=== PATIENT | female | born 1970 | race Caucasian/White ===

== ENCOUNTER 2017-10-10 14:18 | Emergency (ER) | payer OTHER, SELFPAY ==
[2017-10-10] VITALS (8 sets, daily range): BP systolic 134–164; BP diastolic 71–91; PULSE 89–107; RESP 15–18; TEMP 36.9; O2SAT 95–98; BMI 41.2
--- NOTE | 2017-10-10 15:13 | EKG12_ITS ---
Test Reason : REPEAT Blood Pressure : / mmHG Vent. Rate : 081 BPM Atrial Rate : 081 BPM P-R Int : 142 ms QRS Dur : 082 ms QT Int : 366 ms P-R-T Axes : 026 022 021 degrees QTc Int : 425 ms Normal sinus rhythm Normal ECG Confirmed by KARIN SANDRA, SYLWIA ([id number]), manuscript editor DIMA TRIMBLE ([id number]) on 10/13/2017 1:47:08 PM Referred By: RAFAEL Confirmed By:SYLWIA FRAZIER MD
--- NOTE | 2017-10-10 15:14 | CT_ITS ---
STUDY: CTA CHEST REASON FOR EXAM: Female, 47 years old. Shortness of breath chest pain RADIATION DOSAGE (If Supplied By Facility): CTDIvol = ( 14.21 ) mGy, DLP = ( 606.94 ) mGycm TECHNIQUE: The examination was performed with the intravenous administration of 100 ml of Isovue 370 contrast material. Post-processing of the angiographic images was performed, with multiplanar reformation and 3D reconstruction. Individualized dose optimization techniques were used for this CT. COMPARISON: Renee 2017 chest x-ray, CT angiogram chest March 13, 2017 FINDINGS: Normal enhancement of the main pulmonary artery and right and left pulmonary arteries. Normal enhancement of the bilateral peripheral pulmonary arteries. There is no demonstrated pulmonary embolism. Normal thoracic aorta and visualized great vessels. There is no demonstrated aortic dissection. Normal heart and pericardium. Normal mediastinum. Normal hilar regions. Normal visualized trachea and bronchi. The lungs are well expanded. Normal pulmonary parenchyma. Normal pleura. Normal chest wall structures. There are degenerative changes of thoracic spine. The liver is enlarged and fatty infiltrated. There is borderline splenomegaly. CT/CTA Chest W/WO Contrast IMPRESSION: Normal CTA chest examination, without a demonstrated pulmonary embolism or arterial dissection. Enlarged fatty infiltrated liver. Electronically Signed: Nanci Monroy MD at 17:28 EST Tel , Service support ,
--- NOTE | 2017-10-10 15:14 | RAD_ITS ---
STUDY: X-RAY CHEST REASON FOR EXAM: Female, 47 years old. Chest pain TECHNIQUE: Single AP portable view of the chest. COMPARISON: March 13, 2017 CT chest FINDINGS: The lungs are clear and expanded. There is no demonstrated pleural abnormality. Normal size heart. Normal mediastinum and marcelo. Normal visualized pulmonary arteries. Normal visualized aortic arch and descending thoracic aorta. There are diffuse degenerative changes of the visualized thoracic spine. Normal visualized ribs, clavicles, and shoulders. There is no demonstrated abnormality of the visualized soft tissue structures of the upper abdomen. RAD/Chest PA and Lateral IMPRESSION: Degenerative changes, as described above. No demonstrated acute cardiopulmonary process. Electronically Signed: Nanci Monroy MD at 16:52 EST Tel , Service support ,
[2017-10-10] MEDS: 0.9% Normal Saline 1,000 ML 1000 ML IV (15:23)
[2017-10-10] MEDS: Aspirin 81 MG TAB.CHEW 324 MG PO (15:24)
--- NOTE | 2017-10-10 15:25 | ED.DCSUM_ITS ---
- ER Visit Summary Date of Service: 10/10/17 Chief Complaint: chest pain History of Present Illness: The patient is a 47 F history of pulmonary embolism who presents for chest pain onset yesterday. Patient states yesterday she had an episode of chest heaviness with discomfort in her back as well as radiation to the left jaw, which she thought was due to a recent tooth extraction. It took her breath away. It lasted approximately 1 hour. Today she began having symptoms again and they have lasted approximately 4 hours. 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 She was then switched to Eliquis but did not realize it was a twice daily medication. She has only been taking it twice daily for 2 weeks. She has a family history of unprovoked blood clots. she states she has had fevers and hot flashes for approximately 2 weeks that have been intermittent as well as nausea. No congestion or cold- like symptoms. History of hypothyroidism status post thyroidectomy. Physical Examination: Vital signs: afebrile, hemodynamically stable, no hypoxia on room air General: well nourished, well developed, in no distress Skin: warm, dry, no rash, no pallor HEENT: normocephalic and atraumatic; PERRL, EOMI, moist mucous membranes Cardiovascular: regular rate and rhythm without murmurs, no peripheral edema, 2 + pulses all distal extremities Respiratory: No increased work of breathing, lungs are clear to auscultation bilaterally, no rales, rhonchi or wheezing Abdominal: Abdomen is soft, nontender with normoactive bowel sounds, no guarding or rebound, no masses MSK: Moves all extremities, no deformities, normal strength, no calf tenderness or swelling Neuro: Awake and alert, oriented ?4. No facial droop, sensation and motor function intact and symmetric Test Results: Abnormal Lab Results 10/10/17 10/10/17 10/10/17 14:37 14:37 15:33 PT 14.0 INR 1.1 APTT 27.1 10/10/17 10/10/17 10/10/17 15:33 15:33 18:30 WBC 13.4 H Corrected WBC RBC 5.25 Hgb 14.3 Hct 44.0 MCV 83.8 MCH 27.2 MCHC 32.5 RDW 14.4 RDW Differential 43.7 Plt Count 424 MPV 9.7 Immature Gran % (Auto) 0.600 Neut % (Auto) 51.8 Lymph % (Auto) 37.8 Marion % (Auto) 5.1 Eos % (Auto) 4.5 Baso % (Auto) 0.2 Immature Gran # (Auto) Absolute Neuts (auto) 7.0 Absolute Lymphs (auto) 5.08 H Absolute Monos (auto) Total Counted Not Reportable Neutrophils % (Manual) Band Neutrophils % Lymphocytes % (Manual) Monocytes % (Manual) Eosinophils % (Manual) Basophils % (Manual) Metamyelocytes % Myelocytes % Promyelocytes % Blast Cells % Plasma Cell % (Manual) Other Cells % Lymphocytes # Nucleated RBCs/100 WBC Differential Comment SCANNED Diff Path Review Hypersegmented Neuts Atypical Lymphocytes Reactive Lymphocytes Smudge Cells Eosinophilia # Basophilia # Toxic Granulation Dohle Bodies Jose Armando Rods Platelet Estimate Plt Morphology Comment RBC Morphology Polychromasia Hypochromasia Poikilocytosis Basophilic Stippling Anisocytosis Microcytosis Macrocytosis Spherocytes Sickle Cells Target Cells Tear Drop Cells Ovalocytes Stomatocytes [place] Bodies Viky Cells Bite Cells Acanthocytes (Spur) Rouleaux Schistocytes PT INR APTT Sodium 137 Potassium 4.1 Chloride 107 Carbon Dioxide 21.0 Anion Gap 9 BUN 19 H Creatinine 0.68 Estim Creat Clear Calc 102.06 Est GFR (MDRD) Af Amer 119 Est GFR (MDRD) Non-Af 98 BUN/Creatinine Ratio 28.1 H Glucose 105 Calcium 9.9 Troponin I < 0.02 < 0.02 TSH 0.03 L Emergency Department Course and Treatment: Chest pain workup was performed. Given patient's history of unprovoked blood clots in her improper dosing of her Eliquis, PE workup was included. EKG showed sinus rhythm without ischemia or ectopy. Mild leukocytosis of 13.4. No electrolyte derangements. Troponin negative. Patient did have labs consistent with dehydration. CT angiograph of the chest was performed and showed no evidence of pulmonary emboli and no other pathology. Chest x-ray had showed no infiltrates or effusions. Patient was given IV hydration. She was given aspirin. Because of her several hours of symptoms and her HEART score putting her at low risk for 30-day MACE, a delta EKG and troponin were performed. The repeat EKG at 3 hours was unchanged and the troponin remained negative. Patient's TSH was checked given her history of hypothyroidism after her thyroidectomy. Her TSH was very low and we discussed that she should follow-up with her doctor for medication adjustment of her levothyroxine. Patient was pain-free during her visit in the emergency department. She was given return precautions. She was discharged home and is instructed to follow-up with her primary care doctor as soon as possible for further evaluation and possible outpatient stress test. Treatment Plan: [] Disposition: discharge home Impression: chest pain, low TSH, hyperthyroidism This note was generated with [employer] dictation software. It may contain incorrect words, spelling, and punctuation that were not noted in review of the chart prior to signing ED Disposition - Plan for ED Patient: Disposition: Home or Assisted Living Chief Complaint: Chest Pain Instructions: ED Chest Pain Atypical Unkn Cause, ED Hyperthyroidism Referrals: Ayanna Wright DO [Primary Care Provider] - As soon as possible Additional Instructions: You had a workup for your chest pain today. you had 2 EKGs and blood work performed twice that showed no concerning findings for this being a heart attack. Please see your doctor as soon as possible for another evaluation and to discuss whether you need an outpatient stress test to further work up your chest pain. Your scan of your chest showed no evidence of a blood clot. Your workup does show that her thyroid function is high. You may need your medication dose reduced. Please see your doctor as soon as possible to discuss this. If you are taking too much thyroid medication, this may make you have symptoms like you presented with today. If you have any worsening of your condition or any further concerns, please come back immediately for another evaluation to the emergency department.
[2017-10-10 15:48] LABS: International Normalized Ratio 1.1
[2017-10-10 15:49] LABS: Partial Thromboplast Time 27.1 Seconds (24.1-36.2)
[2017-10-10 15:52] LABS: Absolute Lymphocyte Count 5.08 X10^3/ul (0.83-4.51); Basophil# 0.03 X10^3/uL; Basophil% 0.2 % (0-1); Eosinophils% 4.5 % (0-5); Hemoglobin 14.3 g/dl (12.0-15.0); Lymphocyte # 5.08 X10^3/ul (4.0); Lymphocyte % 37.8 % (19-41); Mean Corp Hgb Conc 32.5 g/gl (32-36); Mean Corpuscular Hgb 27.2 pg (27.0-32.0); Mean Corpuscular Volume 83.8 fL (81-99); Mean Platelet Vol. 9.7 fl (6.2-12.0); Monocyte# 0.68 X10^3/uL; Monocyte% 5.1 % (0-10); Neutrophil # 6.97 X10^3/uL (2.7-7.7); Neutrophil % 51.8 % (47-70); Platelet Count 424 K/mm3 (150-450); RBC Distribution Width CV 14.4 % (11.6-14.6); RBC Distribution Width SD 43.7 fl (35.1-43.9); Red Blood Count 5.25 M/mm3 (4.2-5.4); White Blood Count 13.4 K/mm3 (4.4-11.0)
[2017-10-10 16:07] LABS: Differential Indicated SCAN CRITERIA MET; POSITIVE COUNT NO; POSITIVE DIFFERENTIAL YES; POSITIVE MORPHOLOGY NO
[2017-10-10 16:12] LABS: Anion Gap 9 (5-15); BUN 19 mg/dL (7-18); BUN/Creat Ratio 28.1 RATIO (10-20); Calcium,Total 9.9 mg/dL (8.5-10.1); Chloride 107 mmol/L (98-107); Creatinine, Serum 0.68 mg/dL (0.55-1.02); EST Glomerular Filtration Rate 98 mL/min (>60); Est Glom Filt Rate - Afr Amer 119 mL/min (>60); Estimated Creatinine Clearance 102.06 ml/min; Glucose 105 mg/dL (74-106); Potassium 4.1 mmol/L (3.5-5.1); Sodium Level 137 mmol/L (136-145); Thyroid Stim Hormone (TSH) 0.03 uIU/mL (0.358-3.74)
[2017-10-10 16:33] LABS: Differential Comment SCANNED
--- NOTE | 2017-10-10 17:48 | EKG12_ITS ---
Test Reason : CP Blood Pressure : / mmHG Vent. Rate : 096 BPM Atrial Rate : 096 BPM P-R Int : 140 ms QRS Dur : 082 ms QT Int : 344 ms P-R-T Axes : 013 012 008 degrees QTc Int : 434 ms Normal sinus rhythm Normal ECG Confirmed by KARIN SANDRA, SYLWIA ([id number]), desk editor DIMA TRIMBLE ([id number]) on 10/13/2017 1:47:22 PM Referred By: DENNYS Confirmed By:SYLWIA FRAZIER MD
--- NOTE | 2017-10-10 19:17 | ED.DEP ---
ED Disposition - Plan for ED Patient: Disposition: Home or Assisted Living Chief Complaint: Chest Pain Instructions: ED Hyperthyroidism, ED Chest Pain Atypical Unkn Cause Referrals: Ayanna Wright, [Primary Care Provider] - As soon as possible Additional Instructions: You had a workup for your chest pain today. you had 2 EKGs and blood work performed twice that showed no concerning findings for this being a heart attack. Please see your doctor as soon as possible for another evaluation and to discuss whether you need an outpatient stress test to further work up your chest pain. Your scan of your chest showed no evidence of a blood clot. Your workup does show that her thyroid function is high. You may need your medication dose reduced. Please see your doctor as soon as possible to discuss this. If you are taking too much thyroid medication, this may make you have symptoms like you presented with today. If you have any worsening of your condition or any further concerns, please come back immediately for another evaluation to the emergency department.
== END 2017-10-10 19:40 | disposition home or self-care (01) ==
PROVIDERS: Emergency Provider Emergency Medicine; Family Provider Internal Medicine; PCP Internal Medicine
DX: R07.9 Chest pain, unspecified (principal); E89.0 Postprocedural hypothyroidism; R94.6 Abnormal results of thyroid function studies; Z86.711 Personal history of pulmonary embolism; Z79.01 Long term (current) use of anticoagulants; Z83.2 Family history of diseases of the blood and blood-forming organs and certain disorders involving the immune mechanism; Z87.891 Personal history of nicotine dependence; Z79.899 Other long term (current) drug therapy
CPT/HCPCS: 71046; 71275; 80048; 84443; 84484; 85025; 85610; 85730; 93005; 96360; 96361; 99285; J7030; Q9967; A4216

== ENCOUNTER 2017-10-11 16:43 | Outpatient (RCR) | payer OTHER, SELFPAY ==
[2017-10-10 14:20] VITALS: BMI 41.2
[2017-10-10 19:36] VITALS: BP 140/71
== END 2017-11-01 23:59 ==
LOC: DC 16:43
PROVIDERS: Family Provider Internal Medicine; PCP Internal Medicine; Visit Provider Internal Medicine
DX: E11.9 Type 2 diabetes mellitus without complications (principal); E66.9 Obesity, unspecified; I10 Essential (primary) hypertension; K76.0 Fatty (change of) liver, not elsewhere classified; Z68.41 Body mass index [BMI] 40.0-44.9, adult; Z71.3 Dietary counseling and surveillance
CPT/HCPCS: G0109

== ENCOUNTER → 2017-10-25 07:09 | Outpatient (CLI) | payer OTHER, SELFPAY ==
[2017-10-10 14:20] VITALS: BMI 41.2
[2017-10-10 19:36] VITALS: BP 140/71
--- NOTE | 2017-10-25 11:14 | STRESSREP_ITS ---
Stress Test Report Date: 10/25/2017 Procedure: Exercise tolerance test/imaging study Indications: Chest pain Consent: Per the patient Procedure: The patient exercised on a Cedric protocol for 6 minutes completing stage II achieving a peak heart rate of 162 bpm (94% predicted maximal heart rate) with a peak blood pressure 180/90 mmHg and a peak MET capacity of 7 METs. The baseline ECG demonstrated normal sinus rhythm. The peak exercise ECG demonstrated approximately 0.5-1.[address] segment depression in leads II, III, aVF, and V3 through V6 with resolution towards baseline beginning by 1 minute in recovery. There were no cardiac dysrhythmias pretest, during exercise, or recovery. The functional capacity was considered average. The patient noted arm discomfort from holding. The examination was discontinued secondary to dyspnea. Impression: 1. Technically adequate (percent predicted maximal heart rate greater than 85% ) exercise tolerance test 2. Peak exercise ECG with approximately 0.5-1.[address] segment depression in leads II, III, aVF, and V3 through V6 with resolution towards baseline beginning by 1 minute in recovery. 3. Nuclear images pending Myocardial perfusion imaging study: Technique: The patient was injected with 14.6 mCi of technetium 99m Cardiolite and subsequently rest SPECT Cardiolite nuclear imaging was obtained in the horizontal long, vertical long, and short axis views. The patient exercised on a Cedric protocol for 6 minutes completing stage II achieving a peak heart rate of 162 bpm (94% predicted maximal heart rate) with a peak blood pressure 180/90 mmHg and a peak MET capacity of 7 METs the patient was injected with 44.7 mCi of technetium 99m Cardiolite and subsequently stress SPECT Cardiolite nuclear imaging was obtained in the horizontal long, vertical long, and short axis views. A gated Cardiolite study at peak stress was obtained. Interpretation: Rest and stress SPECT Cardiolite nuclear imaging status post realignment, normalization, and attenuation correction, demonstrates the appearance of relative uniform tracer uptake and myocardial perfusion appearing within normal limits. There is end systolic thickening and brightening. The gated Cardiolite study demonstrates myocardial thickening and inward wall motion. The reported LVEF is 69%. Impression: 1. Rest and stress SPECT Cardiolite nuclear imaging demonstrate relative uniform tracer uptake and myocardial perfusion appearing within normal limits. 2. The gated Cardiolite study reports an LVEF of 69%. This note was generated with Dragon dictation software. It may contain incorrect words, spelling, and punctuation that were not noted in checking the note before signing.
== END ==
PROVIDERS: Family Provider Internal Medicine; PCP Internal Medicine; Visit Provider Internal Medicine
DX: R07.9 Chest pain, unspecified (principal)
CPT/HCPCS: 78452; 93017; A9500; A4216

== ENCOUNTER 2018-01-11 18:30 | Outpatient (RCR) | payer OTHER, SELFPAY ==
[2017-11-02 00:08] VITALS: BP 140/71; BMI 41.2
== END 2018-02-01 23:59 ==
LOC: DC 18:30
PROVIDERS: Family Provider Internal Medicine; PCP Internal Medicine; Visit Provider Internal Medicine
DX: E11.9 Type 2 diabetes mellitus without complications (principal); E66.9 Obesity, unspecified; I10 Essential (primary) hypertension; K76.0 Fatty (change of) liver, not elsewhere classified; Z68.41 Body mass index [BMI] 40.0-44.9, adult; Z71.3 Dietary counseling and surveillance
CPT/HCPCS: 97803; G0109

== ENCOUNTER → 2018-01-19 08:53 | Outpatient (CLI) | payer OTHER, SELFPAY ==
--- NOTE | 2018-01-19 08:56 | RAD_ITS ---
STUDY: X-RAY - RIGHT SHOULDER REASON FOR EXAM: Female, 47 years old. Pain following injury. TECHNIQUE: 4 view(s) of the shoulder. COMPARISON: None. FINDINGS: Normal glenohumeral articulation. There is degenerative arthrosis of the acromioclavicular joint without inferior osseous spur formation. Normal acromion. Normal humeral head and visualized proximal humerus. There is periarticular soft tissue calcification consistent with a calcific tendinitis. Normal visualized pulmonary apex. RAD/Shoulder min 2 Views IMPRESSION: Calcific tendinitis. Degenerative changes of the acromioclavicular joint. Electronically Signed: Carlos Tafoya MD at 13:50 EDT Tel [phone], Service support ,
== END ==
PROVIDERS: Family Provider Internal Medicine; PCP Internal Medicine; Visit Provider Internal Medicine
DX: M19.011 Primary osteoarthritis, right shoulder (principal)
CPT/HCPCS: 73030

== ENCOUNTER → 2018-03-15 12:52 | Outpatient (CLI) | payer OTHER, SELFPAY ==
--- NOTE | 2018-03-15 12:55 | CT_ITS ---
STUDY: CT RIGHT SHOULDER REASON FOR EXAM: Right shoulder injury, loss of range of motion. TECHNIQUE: The patient was scanned in a multi detector CT scanner. High resolution transaxial imaging was performed without the administration of intravenous contrast material. Sagittal and coronal images were reconstructed. Individualized dose optimization techniques were used for this CT. COMPARISON: Radiographs 01/19/2018. FINDINGS: Normal glenohumeral articulation. Normal glenoid rim, neck and visualized scapula. Normal humeral head, neck and tuberosities. Normal coracoid process. Normal visualized lateral clavicle. There is acromioclavicular arthrosis with vacuum phenomenon (coronal reconstructions 53, 54) and no substantial undersurface osteophytes. There is a Type II morphology (curved), with a neutral orientation. There is mild supraspinatus calcific tendinitis (sagittal reconstruction 32). CT/Extremity Upper without Contra IMPRESSION: Mild supraspinatus calcific tendinitis. Acromioclavicular arthrosis. No demonstrated fracture. Electronically Signed: Kalin Rizo MD at 16:01 EDT Tel , Service support ,
== END ==
PROVIDERS: Family Provider Internal Medicine; PCP Internal Medicine; Visit Provider Orthopaedic Surgery
DX: S46.911A Strain of unspecified muscle, fascia and tendon at shoulder and upper arm level, right arm, initial encounter (principal); X58.XXXA Exposure to other specified factors, initial encounter; M75.31 Calcific tendinitis of right shoulder; M19.011 Primary osteoarthritis, right shoulder
CPT/HCPCS: 73200

== ENCOUNTER 2018-03-28 20:55 | Emergency (ER) | payer OTHER, SELFPAY ==
[2018-03-28 20:57] VITALS: BP 144/79; PULSE 95; RESP 18; TEMP 36.6; O2SAT 98; BMI 36.1
--- NOTE | 2018-03-28 21:42 | ED.DCSUM_ITS ---
- ER Visit Summary Date of Service: 03/28/18 Chief Complaint: Back pain History of Present Illness: The patient is a 48 F presents with chief complaint of back pain. Patient has a history of chronic back pain and was recently diagnosed with possible rotator cuff injury to her right shoulder. Patient states that she is currently moving and has been lifting and twisting a lot. She has been trying to use her left arm more to compensate for her right shoulder injury. She states her back has been tight for the past couple of weeks, but has become much more significant over the past 3 or 4 days. Patient denies pain radiating into her legs or arms. She was not able to sleep last night secondary to pain. Physical Examination: Vital signs unremarkable. Patient sitting on the side of the bed. She appears uncomfortable but no acute distress. Heart is regular rate and rhythm. Lung sounds are clear. Back examination was reproducible tenderness in the thoracic and lumbar paraspinals. There is no significant midline tenderness. Neuro exam is unremarkable with good strength and sensation the lower extremities. Test Results: [] Emergency Department Course and Treatment: Patient be given a home pack of oxycodone and Valium as she did drive herself here. She will be given prescriptions for Percocet and Valium as well. Because of her history of diabetes and on blood thinner, I will avoid anti-inflammatories. Treatment Plan: [] Disposition: Discharge Impression: Thoracic and lumbar paraspinal strain with spasm This note was generated with [employer] dictation software. It may contain incorrect words, spelling, and punctuation that were not noted in review of the chart prior to signing ED Disposition - Plan for ED Patient: Disposition: Home or Assisted Living Chief Complaint: Back Instructions: ED Sprain Strain Lumbar Prescriptions: Oxycodone HCl/Acetaminophen [Percocet 5/325] 1 tablet PO Q6H PRN PRN 3 Days #12 tablet PRN Reason: Pain Diazepam [Valium] 5 mg PO Q8 PRN #10 tablet PRN Reason: Muscle Spasm Referrals: Ayanna Wright DO [Primary Care Provider] - 1 Week if not improving
--- NOTE | 2018-03-28 21:45 | DCINST.ED_ITS ---
ED Disposition - Plan for ED Patient: Disposition: Home or Assisted Living Chief Complaint: Back Instructions: ED Sprain Strain Lumbar Prescriptions: Oxycodone HCl/Acetaminophen [Percocet 5/325] 1 tablet PO Q6H PRN PRN 3 Days #12 tablet PRN Reason: Pain Diazepam [Valium] 5 mg PO Q8 PRN #10 tablet PRN Reason: Muscle Spasm Referrals: Ayanna Wright DO [Primary Care Provider] - 1 Week if not improving
[2018-03-28] MEDS: oxyCODONE 5 MG Tablet PO (22:01)
[2018-03-28] MEDS: diazePAM 2 MG Tablet PO (22:02)
[2018-03-28 22:11] VITALS: RESP 17
== END 2018-03-28 22:11 | disposition home or self-care (01) ==
PROVIDERS: Emergency Provider Emergency Medicine; Family Provider Internal Medicine; PCP Internal Medicine
DX: S29.012A Strain of muscle and tendon of back wall of thorax, initial encounter (principal); S39.012A Strain of muscle, fascia and tendon of lower back, initial encounter; M62.830 Muscle spasm of back; X50.9XXA Other and unspecified overexertion or strenuous movements or postures, initial encounter; X50.1XXA Overexertion from prolonged static or awkward postures, initial encounter; Y93.9 Activity, unspecified; Y92.9 Unspecified place or not applicable; J45.909 Unspecified asthma, uncomplicated; K21.9 Gastro-esophageal reflux disease without esophagitis; E11.9 Type 2 diabetes mellitus without complications; Z90.49 Acquired absence of other specified parts of digestive tract; Z90.710 Acquired absence of both cervix and uterus; Z79.84 Long term (current) use of oral hypoglycemic drugs; Z79.01 Long term (current) use of anticoagulants; Z79.899 Other long term (current) drug therapy; Z87.891 Personal history of nicotine dependence
CPT/HCPCS: 99282

== ENCOUNTER 2018-04-03 01:09 | Emergency (ER) | payer OTHER, SELFPAY ==
[2018-04-03 01:09] VITALS: BP 160/89; PULSE 91; RESP 18; TEMP 36.4; O2SAT 90; BMI 35.2
[2018-04-03] MEDS: oxyCODONE 5 MG Tablet PO (01:39)
[2018-04-03] MEDS: diazePAM 5 MG Tablet PO (01:40)
--- NOTE | 2018-04-03 01:41 | ED.VISSUMM ---
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 States she is trying to get behind it this week. No radicular symptoms. No loss of bowel or bladder control. History of similar in the past with no surgical interventions. States was seen here a week ago for mid back pain, was given for oxycodone for volumes for which she has used. Mid back pain has improved. She is on Eliquis for history of PEs in the past. No gastric ulcers or kidney injury. Physical Examination: General: Alert and oriented ?3, mild distress with movement HEENT: Normocephalic, atraumatic. Moist mucosa membranes Neck: supple, nontender. Cardiovascular: Regular rate and rhythm, no murmurs Respiratory: Normal breath sounds, symmetric, no distress Back: No midline tenderness. Left paralumbar tenderness. Straight leg negative. 2+ patellar reflex bilaterally. Abdomen: Soft, nontender, nondistended Extremities: Nontender, no edema, pulses intact ?4 Neuro: no focal neurological deficits. Test Results: [] Emergency Department Course and Treatment: Exam concerns for lumbar strain. Patient drove here. She is on Eliquis, therefore NSAIDs are avoided. [facility] report did note 4 tabs received each on the . Short prescription be written. Follow-up with her PCP. Treatment Plan: [] Disposition: Discharge Impression: Acute lumbar strain This note was generated with [employer] dictation software. It may contain incorrect words, spelling, and punctuation that were not noted in review of the chart prior to signing ED Disposition - Plan for ED Patient: Disposition: Home or Assisted Living Chief Complaint: Back Diagnosis: Acute lumbar myofascial strain Instructions: ED Sprain Strain Lumbar Prescriptions: Oxycodone HCl/Acetaminophen [Percocet 5/325] 1 tablet PO Q6H PRN PRN 3 Days #10 tablet PRN Reason: Pain Diazepam [Valium] 5 mg PO Q8 PRN #10 tablet PRN Reason: Muscle Spasm Referrals: Ayanna Wright DO [Primary Care Provider] - 3-5 Days
[2018-04-03 01:52] VITALS: BP 153/86; PULSE 91; RESP 17; O2SAT 98
== END 2018-04-03 01:53 | disposition home or self-care (01) ==
PROVIDERS: Emergency Provider Emergency Medicine; Family Provider Internal Medicine; PCP Internal Medicine
DX: S39.012A Strain of muscle, fascia and tendon of lower back, initial encounter (principal); X50.0XXA Overexertion from strenuous movement or load, initial encounter; Y93.89 Activity, other specified; Y92.9 Unspecified place or not applicable; E11.9 Type 2 diabetes mellitus without complications; E03.9 Hypothyroidism, unspecified; Z86.711 Personal history of pulmonary embolism; Z79.01 Long term (current) use of anticoagulants; Z79.84 Long term (current) use of oral hypoglycemic drugs; Z79.899 Other long term (current) drug therapy; Z87.891 Personal history of nicotine dependence
CPT/HCPCS: 99283

== ENCOUNTER 2018-04-03 13:00 | Outpatient (RCR) | payer OTHER, SELFPAY ==
--- NOTE | 2018-02-26 08:07 | HP.PTEVAL ---
Patient's Visit Information ANNEMARIE CHAVARRIA is a 47 year old F referred to Physical Therapy by NIKOLE Magallanes with a diagnosis of Shoulder Pain. Date of Evaluation: 02/26/18 Physical Therapist: Jenna Mccarty - Visit Plan Frequency: 3x /Week Duration: 3 Weeks Plan: Right shoulder- focus on ROM and strength/stabilization - Subjective Subjective: Was holding the bar on a [employer] in [facility] and felt it was jerked- as the day progressed it got worse. Injury was January 18- Was going to do an MRI but she has metal in her so she is planning to see [facility] on March 06. They will then decide what the next step is. Thinking possible RTC or Labral tear. Was given restrictions at work to not use her arm. Then went and saw PA who wants to her try PT. Pain is located in the anterior shoulder and on the top of the acromion. Describes the pain as sharp. As soon as she stops moving it its a little bit achy. No radiating pain. No N/T in the fingers. Right hand dominate. Worst: 6/10 Agg: movement, reaching, lifting Eases: ice Best: 0/10 Sleep: disturbed- side sleeper. X-rays but no MRI. 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 PMhx: hysterectomy, PE, thyroid,Meds: metformin, trulictiy, eloquist, levothyroxen - Objective Posture: FH, RS, Increased kyphosis- pt is overweight- guarding of the right UE. Palpation: tender along upper trap to the tip of the acromion and along the deltoid of the right UE. ROM: finger dexterity: WNL, Wrist/Elbow: WNL Shoulder: Arom: flexion- 95 degrees, Abd: 160 degrees, IR: equal to to ther side ER: 60 degrees with pain in all motions. PROM: flexion: 130 degrees, Abd: to ear. Strength: Elbow/Wrist/hand: 5/5 Shoulder isometric at neutral: flexion/abd: 3+/4, with pain, IR/ER: 4/5 no pain, Extn: 4+/5 no pain Add: 4/5 with pain. Scap: poor. Special Test: impingement: positive, Empty can: positive - Goals Goal 1:: Patient will be I with HEP and progression Goal Time Frame: 4-6 Weeks Goal 2:: Patient will demo full AROM of right right shoulder Goal Time Frame: 4-6 Weeks Goal 3:: Patient will maintain proper posture t/o tx session to demo increased scap s/s Goal Time Frame: 4-6 Weeks Goal 4:: Patient will report sleeping through the night for 1 week Goal Time Frame: 4-6 Weeks - Rehabilitation Potential Physical Therapy Diagnosis: Patient presents with hypomobility- she has decreased ROM, strength and muscular endurance leading to poor posture and increased pain with ADL's. Rehabilitation Potential: Fair - Anticipated Interventions Patient/Client Instruction: Educate patient on: Benefits of Fitness Program For the Purpose of:: To increase tolerance to activity/condition/position Therapeutic Exercise to Include: Strength training, Endurance training, Body mechanics, Passive ROM, Active ROM, Scapular Strength/Stabilization For the Purpose of:: To improve muscle performance and motor function TENS: Yes Cryotherapy (ice pack, ice massage): Yes Thermo therapy (hot pack): Yes Ultrasound (thermal/non thermal): Yes For the Purpose of:: To decrease pain Thank you for the opportunity to evaluate your patient. For Medicare and Medicare HMO plans, please review the plan of care and approve it. It will need to be FAXED BACK to us at [phone] for Medicare purposes. Please let me know if there are questions or concerns regarding this plan of care. Physician Signature: Date:
--- NOTE | 2018-04-03 13:21 | HP.PTREVAL_ITS ---
NIKOLE Magallanes, It has been my pleasure to treat ANNEMARIE CHAVARRIA over the last 9 visits for Shoulder Pain. Please see the progress note below for an update on the physical therapy plan of care! Subjective: Patient reports that she is currently moving so its been hard on the back and the shoulder. Driving is still the hardest- hard to open the door. Has authorization for the [place]- is waiting on the call. Worst: 6/10 Best: 0/10 when at rest. Objective/Function: Posture: FH, RS, Increased kyphosis- pt is overweight- guarding of the right UE. Palpation: tender along upper trap to the tip of the acromion and along the deltoid of the right UE. ROM: finger dexterity: WNL, Wrist/Elbow: WNL Shoulder: Arom: flexion- 180 degrees, Abd: 180 degrees, IR: equal to to ther side ER: 60 degrees with pain in all motions. Strength: Elbow /Wrist/hand: 5/5 Shoulder isometric at neutral: flexion/abd: 4/5, with pain, IR /ER: 4+/5 no pain, Extn: 5/5 no pain Add: 4+/5 with pain. Scap: fair Special Test: impingement: positive, Empty can: positive Plan Plan: Hold until testing completed Goals Goal 1:: Patient will be I with HEP and progression Goal Time Frame: 4-6 Weeks Goal Progress: Progressing Goal 2:: Patient will demo full AROM of right right shoulder Goal Time Frame: 4-6 Weeks Goal Progress: Goal Met Goal 3:: Patient will maintain proper posture t/o tx session to demo increased scap s/s Goal Time Frame: 4-6 Weeks Goal Progress: Not Progressing Goal 4:: Patient will report sleeping through the night for 1 week Goal Time Frame: 4-6 Weeks Goal Progress: Progressing Anticipated Interventions Patient/Client Instruction: Educate patient on: Benefits of Fitness Program For the Purpose of:: To increase tolerance to activity/condition/position Therapeutic Exercise to Include: Strength training, Endurance training, Body mechanics, Passive ROM, Active ROM, Scapular Strength/Stabilization For the Purpose of:: To improve muscle performance and motor function TENS: Yes Cryotherapy (ice pack, ice massage): Yes Thermo therapy (hot pack): Yes Ultrasound (thermal/non thermal): Yes For the Purpose of:: To decrease pain Please do not hesitate to contact me at [phone] by phone or Fax: if you have questions or concerns regarding this new plan of care! Sincerely, Jenna Mccarty
--- NOTE | 2018-05-28 16:47 | HP.PT.NRP ---
HP - Discharge Summary (1) - Patient Information ANNEMARIE CHAVARRIA was seen in my office for initial evaluation on 02/26/18. The following Plan of Care was established for this patient: Initial Frequency: 3x /Week Initial Duration: 3 Weeks - Anticipated Interventions Patient/Client Instruction: Educate patient on: Benefits of Fitness Program For the Purpose of:: To increase tolerance to activity/condition/position Therapeutic Exercise to Include: Strength training, Endurance training, Body mechanics, Passive ROM, Active ROM, Scapular Strength/Stabilization For the Purpose of:: To improve muscle performance and motor function TENS: Yes Cryotherapy (ice pack, ice massage): Yes Thermo therapy (hot pack): Yes Ultrasound (thermal/non thermal): Yes For the Purpose of:: To decrease pain This patient was last seen in our office . Pertinent comments regarding their Physical therapy will appear below: Patient has not attended physical therapy in over 4 weeks and is appropriate for d/c. At this point I will be discontinuing this patient from physical therapy. I would be happy to see this patient again in the future if found appropriate by the physician. Thank you! Jenna Mccraty
== END 2018-04-03 19:00 | disposition home or self-care (01) ==
LOC: PT 13:00
PROVIDERS: Family Provider Internal Medicine; PCP Internal Medicine; Visit Provider Physician Assistant
DX: S46.911D Strain of unspecified muscle, fascia and tendon at shoulder and upper arm level, right arm, subsequent encounter (principal)
CPT/HCPCS: 97014; 97110; 97140; 97161; 97164; G0283

== ENCOUNTER → 2018-05-03 06:47 | Outpatient (CLI) | payer OTHER, SELFPAY | PROVIDERS: Family Provider Internal Medicine; PCP Internal Medicine; Visit Provider Internal Medicine | DX: M54.12 Radiculopathy, cervical region (principal); M54.5 Low back pain | CPT/HCPCS: 72125; 72131 ==

== ENCOUNTER 2018-05-05 12:59 | Emergency (ER) | payer OTHER, SELFPAY ==
[2018-05-05 13:00] VITALS: BP 161/82; PULSE 93; RESP 18; TEMP 36.1; O2SAT 98; BMI 35.6
--- NOTE | 2018-05-05 15:07 | ED.VISSUMM ---
- ER Visit Summary Date of Service: 05/05/18 Chief Complaint: Neck and back pain History of Present Illness: The patient is a 48 F who was carrying a laundry basket up the steps when she tripped forward and gianni her cervical spine and thoracic region. She has mild bilateral paraspinal region thoracic discomfort and cervical pain as well. It is worse with range of motion. Better with ice. She denies weakness or paresthesias. Denies any direct trauma and she did not completely fall onto the steps. It is currently mild in severity. Physical Examination: She has mild bilateral paraspinal cervical tenderness and paraspinal thoracic tenderness but no midline tenderness, erythema, or fluctuance. Strength and sensation is normal in both upper and lower extremities. There is no other evidence of trauma and the overlying skin looks normal. Test Results: CT c-spine. Negative for acute process, extensive degenerative changes. No fracture. Emergency Department Course and Treatment: Evidence of fracture or acute process. Her pain was addressed. She looks well. I do not feel she needs thoracic imaging. She will be given prescriptions for pain medication and muscle relaxers. Will follow-up if not improving. Treatment Plan: Home on medication Disposition: Home stable condition Impression: Initial encounter acute cervical strain, initial encounter acute thoracic sprain This note was generated with [employer] dictation software. It may contain incorrect words, spelling, and punctuation that were not noted in review of the chart prior to signing ED Disposition - Plan for ED Patient: Chief Complaint: Back Instructions: ED Neck Back Pain General Prescriptions: Naproxen [Naprosyn] 500 mg PO BID PRN #20 tablet Cyclobenzaprine [Flexeril] 10 mg PO TID PRN #20 tablet PRN Reason: Muscle Spasm Referrals: Ayanna Wright DO [Primary Care Provider] -
--- NOTE | 2018-05-05 15:12 | ED.VISSUMM ---
- ER Visit Summary Date of Service: 05/05/18 Chief Complaint: [] History of Present Illness: The patient is a 48 F [] Physical Examination: [] Test Results: [] Emergency Department Course and Treatment: [] Treatment Plan: [] Disposition: [] Impression: [] This note was generated with [employer] dictation software. It may contain incorrect words, spelling, and punctuation that were not noted in review of the chart prior to signing ED Disposition - Plan for ED Patient: Chief Complaint: Back Instructions: ED Neck Back Pain General Prescriptions: Naproxen [Naprosyn] 500 mg PO BID PRN #20 tablet Referrals: Ayanna Wright DO [Primary Care Provider] -
--- NOTE | 2018-05-05 15:38 | ED.VISSUMM ---
- ER Visit Summary Date of Service: 05/05/18 Chief Complaint: [] History of Present Illness: The patient is a 48 F [] Physical Examination: [] Test Results: [] Emergency Department Course and Treatment: [] Treatment Plan: [] Disposition: [] Impression: [] This note was generated with [employer] dictation software. It may contain incorrect words, spelling, and punctuation that were not noted in review of the chart prior to signing ED Disposition - Plan for ED Patient: Chief Complaint: Back Instructions: ED Neck Back Pain General Prescriptions: Oxycodone HCl/Acetaminophen [Percocet 5/325] 1 tablet PO Q6H PRN PRN 3 Days #12 tablet PRN Reason: Pain Referrals: Ayanna Wright DO [Primary Care Provider] -
[2018-05-05 15:44] VITALS: BP 133/96; PULSE 83; RESP 17
== END 2018-05-05 15:46 | disposition home or self-care (01) ==
LOC: ED 14:51
PROVIDERS: Emergency Provider Emergency Medicine; Family Provider Internal Medicine; PCP Internal Medicine
DX: S16.1XXA Strain of muscle, fascia and tendon at neck level, initial encounter (principal); S23.3XXA Sprain of ligaments of thoracic spine, initial encounter; W18.49XA Other slipping, tripping and stumbling without falling, initial encounter; Y93.E2 Activity, laundry; Y92.9 Unspecified place or not applicable; E11.9 Type 2 diabetes mellitus without complications; Z79.84 Long term (current) use of oral hypoglycemic drugs; Z79.01 Long term (current) use of anticoagulants; Z79.899 Other long term (current) drug therapy
CPT/HCPCS: 72125; 99282

== ENCOUNTER 2018-07-11 10:01 | Outpatient (RCR) | payer OTHER, SELFPAY ==
[2018-02-02 00:08] VITALS: BP 140/71; BMI 41.2
== END 2018-07-11 23:59 ==
LOC: DC 10:01
PROVIDERS: Family Provider Internal Medicine; PCP Internal Medicine; Visit Provider Internal Medicine
DX: E11.9 Type 2 diabetes mellitus without complications (principal); E66.9 Obesity, unspecified; I10 Essential (primary) hypertension; K76.0 Fatty (change of) liver, not elsewhere classified; Z68.41 Body mass index [BMI] 40.0-44.9, adult; Z71.3 Dietary counseling and surveillance
CPT/HCPCS: G0109

== ENCOUNTER 2018-07-16 09:30 | Outpatient (RCR) | payer OTHER, SELFPAY ==
--- NOTE | 2018-06-15 15:44 | HP.PTEVAL ---
Patient's Visit Information ANNEMARIE CHAVARRIA is a 48 year old F referred to Physical Therapy by Zhanna Hayden NP with a diagnosis of vertigo. Date of Evaluation: 06/15/18 Physical Therapist: Wili Alonso DPT, OC - Visit Plan Frequency: 1-2x /Week Duration: 4-6 Weeks Plan: Patient likely had vestibulitis and now unilateral vestibulaopathy. No positive positional tests today. recommended as little meclizine to none as possible, VORseated 60 sec horiz 3-7x/day at home and educated on causes. Will see 1-2x/week for 2-6 weeks as needed for progression of adaptation and habituation ex and balance as needed. Approp to use walker currently. - Subjective Subjective: Dizzy. Started insidiously on drive to [place] 10 days ago. Gradually worsened during a drive. [place] dizzy, lightheaded woozy. Ate something adn got nauseous. Went to ER that night and admitted to hospital adn did CATSCANs and thought it was BPPV. Had Hayes maneuver L and it did not help much. Was also on meclizine which she is still on. Released Monday still dizzy. Used wh walker since. Was dizzy all weekend. Head movements make her worse. Had real bad spinning yesterday morning after sitting up and lasting minutes. Has felt woozy since, walking on boat feeling but no bad spinning. Lie down propped up at night. Feels unsteady without her walker. Sleeping OK. Doing basics OK but slow. 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 Villeda Monday. Steps at home Ok with rail. - Objective Oculomotor: no nystagmus with gaze or head shake. Pursuit and saccades are nromal. - skew eye deviation. - convergence. + R head thrust. VOR 3/10 dizzy after 20 seconds and hard to do. - B hallpike. - roll test. Walks unsteady without AD, wh walker is approp. Trasnfers I withotu problems. - Balance Scores Functional Gait Assessment Score: 22 % Disability: 26.6700 - Goals Goal 1:: Abolish woozy feeling at rest and no spinning with position changes at home. Goal Time Frame: 4-6 Weeks Goal 2:: FGA to diminish fall risk. Goal Time Frame: 4-6 Weeks Goal 3:: Pt feel back to 95% and able to drive and work without increasing symptoms. Goal Time Frame: 4-6 Weeks - Rehabilitation Potential Physical Therapy Diagnosis: Vertigo, likely vestibulopathy post vestibulitis Rehabilitation Potential: Fair - Anticipated Interventions Patient/Client Instruction: Educate patient on: Condition, Plan of Care For the Purpose of:: To increase tolerance to activity/condition/position Therapeutic Exercise to Include: Balance training Comment: adaptation/habituation progressions. For the Purpose of:: To increase tolerance to activity/condition/position, To improve ability of physical actions for home/community/work/leisure, To improve balance, To improve safety Thank you for the opportunity to evaluate your patient. For Medicare and Medicare HMO plans, please review the plan of care and approve it. It will need to be FAXED BACK to us at [phone] for Medicare purposes. Please let me know if there are questions or concerns regarding this plan of care. Physician Signature: Date:
--- NOTE | 2018-07-09 09:31 | HP.PTREVAL ---
Zhanna Hayden, PERRY, It has been my pleasure to treat ANNEMARIE CHAVARRIA over the last 7 visits for vertigo. Please see the progress note below for an update on the physical therapy plan of care! Subjective: Doing really well. 70% better. Not as woozy all the time. Certain movements will worsen her but recovers faster. Wozzyness is now intermittent. Feels pretty good sitting still. HEP not bad and only slightly worse. Up from knee is just momentary and improving. Improving VOR walking. Will be ready to go to work next week. Objective/Function: - B hallpike. MSQ only symptoms with up form knees transiently and slightly with turns x 5. diagonal standing VOR was worst today at 4/10 for 30 seconds only. Overall patient showing slow and steady progress. Shoud be safe to drive and educated on trying in open parking lot to start. Should be ready to return to work next week if progress continues. Plan Plan: f/u next week for likely D/C Goals Goal 1:: Abolish woozy feeling at rest and no spinning with position changes at home. Goal Time Frame: 4-6 Weeks Goal Progress: Progressing Goal 2:: 29/30 FGA to diminish fall risk. Goal Time Frame: 4-6 Weeks Goal Progress: Goal Met Goal 3:: Pt feel back to 95% and able to drive and work without increasing symptoms. Goal Time Frame: 4-6 Weeks Goal Progress: Progressing Anticipated Interventions Patient/Client Instruction: Educate patient on: Condition, Plan of Care For the Purpose of:: To increase tolerance to activity/condition/position Therapeutic Exercise to Include: Balance training Comment: adaptation/habituation progressions. For the Purpose of:: To increase tolerance to activity/condition/position, To improve ability of physical actions for home/community/work/leisure, To improve balance, To improve safety Please do not hesitate to contact me at [phone] by phone or if you have questions or concerns regarding this new plan of care! Sincerely, Wili Alonso, DPT, OC
--- NOTE | 2018-07-16 09:57 | HP.PTDCSUM ---
HP - PT D/C Summary It has been my pleasure to treat ANNEMARIE CHAVARRIA under orders from Zhanna Hayden NP, for the diagnosis of vertigo for a total of 8 visit(s). Discharge Date: 07/16/18 Please see the following information for a summary of their discharge status. - Subjective Subjective: Pretty good. I have moments but feels good most of time. One incident where she kicked her coffee table after getting up too fast. HEP going OK, diagonal without symptoms. Up from knee is rarely dizzy. Dr. Villeda released back to work on Monday. Worked with grid paper and two monitors at home and did OK. Only slight momentary symptoms. - Overall Improvement % Improvement: 85 - Objective Objective/Function: Up form knee without symptoms today. Daigonal VOR without symptoms. Walking gave her sligth transient symptoms. Standing bending over is OK but coming up is quickly symptoatic. OVERALL DOING VERY WELL - Goals Goal 1:: Abolish woozy feeling at rest and no spinning with position changes at home. Goal Progress: Goal Met Goal 2:: FGA to diminish fall risk. Goal Progress: Goal Met Goal 3:: Pt feel back to 95% and able to drive and work without increasing symptoms. Goal Progress: Progressing - Plan Plan: d/c - D/C Information Discharge Comments: Doing well and will resume work on Monday. To contact doctor if symptoms return. If there are questions or concerns regarding this patient's physical therapy, please feel free to call me at [phone]. Thank you for the referral of this patient. Sincerely, Wili Alonso, DPT, OC
== END 2018-07-16 19:00 | disposition home or self-care (01) ==
LOC: PT 09:30
PROVIDERS: Family Provider Internal Medicine; PCP Internal Medicine; Referring Provider Nurse Practitioner; Visit Provider Nurse Practitioner
DX: R42 Dizziness and giddiness (principal)
CPT/HCPCS: 97110; 97161; 97530

== ENCOUNTER → 2019-06-21 14:30 | Outpatient (CLI) | payer OTHER, SELFPAY ==
[2018-08-04 00:10] VITALS: BMI 41.2
--- NOTE | 2019-06-21 14:33 | RAD_ITS ---
STUDY: X-RAY - ABDOMEN/PELVIS REASON FOR EXAM: Female, 49 years old. Low back pain. History of stones. TECHNIQUE: Single AP view of the abdomen / pelvis. COMPARISON: None. FINDINGS: There is a moderate amount of colonic fecal material. I suspect a 2.8 mm calculus in the proximal portion of the right ureter over lying the transverse processes of the right L2 vertebrae. Normal soft tissue structures. Normal visualized osseous structures. RAD/Abdomen Single View IMPRESSION: Findings suggestive of a 2.8 mm calculus in the proximal right ureter as described. Electronically Signed: Carlos Tafoya, at 15:05 EDT , Service support ,
== END ==
PROVIDERS: Family Provider Internal Medicine; PCP Internal Medicine; Referring Provider Internal Medicine; Visit Provider Internal Medicine
DX: R10.9 Unspecified abdominal pain (principal)
CPT/HCPCS: 74018

== ENCOUNTER → 2019-07-19 12:53 | Outpatient (CLI) | payer OTHER, SELFPAY ==
[2018-08-04 00:10] VITALS: BMI 41.2
--- NOTE | 2019-06-26 14:00 | RAD_ITS ---
STUDY: X-RAY - ABDOMEN/PELVIS REASON FOR EXAM: Female, 49 years old. Abdominal pain. Kidney stone. TECHNIQUE: 3 views of the abdomen and pelvis COMPARISON: June 21, 2019. FINDINGS: Normal visualized lung bases. Air distended loops of bowel to left mid abdomen. No yaneth bowel obstruction. Constipation. No obvious renal stones identified given bowel gas. Pelvic phlebolith. Osseous structures intact with mild degenerative features. RAD/Abdomen Single View IMPRESSION: No obvious renal stones identified given bowel gas Nonspecific minimally air distended loops about the left midabdomen Constipation Electronically Signed: Wili Herrera DO at 14:35 EDT Tel , Service support ,
[2019-06-26 14:26] VITALS: BP 147/73; PULSE 77; RESP 16; TEMP 36.8; O2SAT 98; BMI 46.2
[2019-06-26 14:41] LABS: Bedside Glucose 102 mg/dL (70-110)
[2019-06-26] MEDS: Lactated Ringers 1,000 ML 100 ML IV (14:58)
== END ==
LOC: AC 06-26 14:14 → SDC 12:54
PROVIDERS: Family Provider Internal Medicine; PCP Internal Medicine; Referring Provider Urology; Visit Provider Urology
DX: Z01.818 Encounter for other preprocedural examination (principal); E11.9 Type 2 diabetes mellitus without complications
CPT/HCPCS: 74018; 82962; J7120

== ENCOUNTER 2020-03-01 23:57 | Emergency (ER) | payer OTHER, SELFPAY ==
[2019-06-26 14:26] VITALS: BMI 46.2
[2020-03-01 23:58] VITALS: BP 148/113; PULSE 80; RESP 20; TEMP 36.6; O2SAT 98; BMI 40.1
--- NOTE | 2020-03-02 00:10 | CT_ITS ---
STUDY: CT ABDOMEN AND PELVIS WITHOUT CONTRAST REASON FOR EXAM: Female, 49 years old. RIGHT FLANK PAIN, HX KS WITH SX, GB, LISY, HX PE, THYROID CA RADIATION DOSAGE (If Supplied By Facility): CTDIvol = ( 22.27 ) mGy, DLP = ( 1112.63 ) mGycm TECHNIQUE: Transaxial images were obtained from the dome of the diaphragm to the symphysis pubis without oral contrast, and without intravenous contrast. Sagittal and coronal images were reconstructed. Individualized dose optimization techniques were used for this CT. COMPARISON: None. FINDINGS: The visualized lung bases are unremarkable. The visualized portions of the heart are within normal limits. 2.6 cm cyst in the segment #4 of the liver. There are surgical clips in the gallbladder fossa consistent with a prior cholecystectomy. Normal spleen. Normal pancreas. Normal bilateral adrenal glands. There is moderate right hydronephrosis due to presence of 6 mm stone in the distal right ureter within 3 cm from the UVJ. Normal left kidney. Normal visualized stomach. Normal small intestine. There are multiple colonic diverticula consistent with diverticulosis. The appendix is visualized and appears normal. Normal abdominal aorta. Normal inferior vena cava. Normal retroperitoneum. Normal urinary bladder. Normal abdominal wall. Normal osseous structures. CT/Abdomen/Pelvis without Cont IMPRESSION: There is moderate right hydronephrosis due to presence of 6 mm stone in the distal right ureter within 3 cm from the UVJ. Electronically Signed: Nadine Cornejo, at 1:24 EDT Tel , Service support ,
--- NOTE | 2020-03-02 00:11 | ED.DCSUM_ITS ---
- ER Visit Summary Date of Service: 03/02/20 Chief Complaint: Right flank pain with a history of prior kidney stones History of Present Illness: The patient is a 49 F type 2 diabetes, prior PE on Eliquis and kidney stones. Patient states she had sudden onset right flank pain began yesterday worse today. Associated nausea no vomiting. No diarrhea or fever. No melena. She does have dysuria. States it feels similar to her prior kidney stones. Denies any trauma. Physical Examination: Middle-aged female complains of pain vital signs stable and afebrile. H EENT exam unremarkable. Neck nontender no lymphadenopathy. Lungs clear to auscultation bilaterally. Heart regular rhythm no murmur. Abdomen soft nontender. Normal bowel sounds no peritoneal signs. No Sharma sign. No McBurney's point tenderness. Patient moving all 4 extremities. No edema. Back nontender. Neurologically she is awake alert with no focal motor deficits. Test Results: Chemistries unremarkable potassium 5.6 secondary to hemolysis. Normal BUN and creatinine. Normal gap. UA shows 250 macro blood. Micro shows greater than 100 red cells. 10-25 white cells. 10-20 epithelial cells consistent contamination. No bacteria. Clinically I do not think this is infection. However I will send a culture. I will treat her with antibiotics until culture returns. CT flank study without contrast shows a distal right ureter 6 mm ureteral calculi with hydronephrosis. This is about 3 cm from the UVJ. This is consistent with her history and exam. Emergency Department Course and Treatment: Patient treated with IV morphine, Toradol for pain and Zofran for nausea. IV fluids. CAT scan labs. History and exam are consistent with possible kidney stone. P.o. Keflex 500 mg. Better on repeat exam at 1:14 AM pain is under control. We discussed all of her test results. Treatment Plan: Strain urine for stone. Pain medications as needed. Follow-up with her urologist Dr. Yasir Bowser. Disposition: Discharge Impression: Acute right flank pain secondary to distal right 6 mm UVJ stone with hydronephrosis History of kidney stones Rule out UTI History of pulmonary emboli anticoagulated on Eliquis History of diabetes This note was generated with [employer] software. It may contain incorrect words, spelling, and punctuation that were not noted in review of the chart prior to signing ED Disposition - Plan for ED Patient: Disposition: Home or Assisted Living Instructions: ED Renal Stone w Colic Prescriptions: Cephalexin [Keflex] 500 mg PO Q8 #9 cap Prescription Printed Oxycodone HCl/Acetaminophen [Percocet 5/325] 1 tab PO Q4H PRN PRN 4 Days #20 tab PRN Reason: Pain Prescription Printed Ondansetron [Zofran Odt] 4 mg PO Q8H PRN PRN #7 tab PRN Reason: Nausea Prescription Printed Referrals: Ebenezer Bowser MD [STAFF PHYSICIAN] - As soon as possible Ayanna Wright DO [Primary Care Provider] - As Needed Additional Instructions: Zofran for nausea. Percocet for pain. Call and follow-up with Dr. Yasir Bowser on Monday. Return if intractable pain, fever or feeling worse. Strain urine for passage of the stone.
[2020-03-02] MEDS: Ketorolac 30 MG/ML Syringe IV (00:35)
[2020-03-02] MEDS: morphine 8 MG/ML Syringe IV (00:35)
[2020-03-02] MEDS: Ondansetron 4 MG/2 ML Vial IV (00:38)
[2020-03-02] MEDS: 0.9% Normal Saline 1,000 ML 1000 ML IV (00:38)
[2020-03-02 00:46] LABS: Anion Gap 5 (5-15); BUN 18 mg/dL (7-18); Calcium,Total 9.2 mg/dL (8.5-10.1); Chloride 106 mmol/L (98-107); Creatinine, Serum 0.75 mg/dL (0.55-1.02); EST Glomerular Filtration Rate 87 mL/min (>60); Est Glom Filt Rate - Afr Amer 105 mL/min (>60); Estimated Creatinine Clearance 87.27 ml/min; Glucose 131 mg/dL (74-106); Potassium 5.6 mmol/L (3.5-5.1); Sodium Level 137 mmol/L (136-145)
[2020-03-02 01:22] VITALS: BP 153/57; PULSE 83; RESP 16; O2SAT 99
[2020-03-02 01:24] LABS: Bacteria 0 SEEN /hpf (None Seen); Mucous, Urine 0 SEEN /hpf (<or=2+)
[2020-03-02 01:26] LABS: Color, Urine Amber (Yellow); Glucose, Dipstick Normal (Normal); Ketone-Dipstick 5 mg/dl (Negative); Leukocyte Esterase-Dipstick 25 /ul (Negative); Nitrite-Dipstick Negative (Negative); Occult Blood-Urine 250 /ul (Negative); Protein-Dipstick 30 mg/dl (Negative); Specific Gravity, Urine 1.025 (1.002-1.030); Urine Bilirubin Dipstick Negative (Negative); Urine Clarity Cloudy (Clear); Urine Urobilinogen Normal (Normal)
--- NOTE | 2020-03-02 01:35 | ED.DEP ---
ED Disposition - Plan for ED Patient: Disposition: Home or Assisted Living Instructions: ED Renal Stone w Colic Prescriptions: Cephalexin [Keflex] 500 mg PO Q8 #9 cap Prescription Printed Oxycodone HCl/Acetaminophen [Percocet 5/325] 1 tab PO Q4H PRN PRN 4 Days #20 tab PRN Reason: Pain Prescription Printed Ondansetron [Zofran Odt] 4 mg PO Q8H PRN PRN #7 tab PRN Reason: Nausea Prescription Printed Referrals: Ayanna Wright DO [Primary Care Provider] - As Needed Ebenezer Bowser MD [STAFF PHYSICIAN] - As soon as possible Additional Instructions: Zofran for nausea. Percocet for pain. Call and follow-up with Dr. Yasir Bowser on Monday. Return if intractable pain, fever or feeling worse. Strain urine for passage of the stone.
[2020-03-02 01:41] LABS: Red Blood Cells-Urine > 100 SEEN /hpf (0-5); Squamous Epithelial Cells - UA 10-25 SEEN /hpf (5-10); White Blood Cells 10-25 SEEN /hpf (0-5); Yeast-Urine 1+ /hpf (None Seen)
[2020-03-02] MEDS: morphine 8 MG/ML Syringe 6 MG IV (01:47)
[2020-03-02] MEDS: Cephalexin 250 MG Capsule 500 MG PO (02:20)
[2020-03-02 02:22] VITALS: RESP 15; O2SAT 97
== END 2020-03-02 02:22 | disposition home or self-care (01) ==
PROVIDERS: Emergency Provider Emergency Medicine; PCP Internal Medicine
DX: N13.2 Hydronephrosis with renal and ureteral calculous obstruction (principal); E11.9 Type 2 diabetes mellitus without complications; Z79.01 Long term (current) use of anticoagulants; Z86.711 Personal history of pulmonary embolism; Z87.442 Personal history of urinary calculi; Z79.84 Long term (current) use of oral hypoglycemic drugs
CPT/HCPCS: 74176; 80048; 81001; 87086; 87088; 96374; 96375; 96376; 99285; J7030; A4216; J2405

== ENCOUNTER → 2020-03-05 10:47 | Outpatient (CLI) | payer OTHER, SELFPAY ==
[2020-03-01 23:58] VITALS: BMI 40.1
[2020-03-03 19:25] LABS: Probe Check PASS; Specimen Processing Control PASS
--- NOTE | 2020-03-04 07:55 | RAD_ITS ---
STUDY: X-RAY - ABDOMEN/PELVIS REASON FOR EXAM: Female, 49 years old. R side kidney stones TECHNIQUE: Single AP view of the abdomen / pelvis. COMPARISON: Comparison is made with prior study dated June 26, 2019. FINDINGS: Normal visualized lung bases. There is a moderate amount of colonic fecal material. The visualized liver, spleen and kidneys are grossly normal in size and morphology. There are calcified phleboliths in the pelvis. Normal visualized osseous structures. RAD/Abdomen Single View IMPRESSION: Moderate amount of fecal material is seen in the colon. No calcific densities are seen. Electronically Signed: Carlos Tafoya, at 12:18 EDT , Service support ,
[2020-03-04 08:12] VITALS: BP 122/78; PULSE 71; RESP 16; TEMP 36.4; O2SAT 99; BMI 40.1
[2020-03-04 09:21] LABS: Bedside Glucose 110 mg/dL (70-110)
== END ==
LOC: AC 03-04 08:30 → SDC 10:47
PROVIDERS: Anesthesiology; PCP Internal Medicine; Referring Provider Urology; Visit Provider Urology
DX: N20.1 Calculus of ureter (principal); Z11.59 Encounter for screening for other viral diseases; Z79.899 Other long term (current) drug therapy; Z79.01 Long term (current) use of anticoagulants; Z79.84 Long term (current) use of oral hypoglycemic drugs; E03.9 Hypothyroidism, unspecified; J45.20 Mild intermittent asthma, uncomplicated; Z86.711 Personal history of pulmonary embolism; E11.9 Type 2 diabetes mellitus without complications; E78.00 Pure hypercholesterolemia, unspecified; E66.9 Obesity, unspecified; Z68.42 Body mass index [BMI] 45.0-49.9, adult; Z53.9 Procedure and treatment not carried out, unspecified reason
CPT/HCPCS: 74018; 82962; 87635; G2023; U0003

== ENCOUNTER → 2020-05-18 12:38 | Outpatient (CLI) | payer OTHER, SELFPAY ==
[2020-03-04 08:12] VITALS: BMI 40.1
--- NOTE | 2020-05-18 12:39 | BI_ITS ---
MAMMOGRAPHY - BILATERAL SCREENING REASON FOR EXAM: Female, 50 years old. Routine annual screening examination. PERTINENT HISTORY: Mother with breast cancer. Aunt with breast cancer. TECHNIQUE: Digital bilateral breast kayleen (3D mammographic acquisition) in the CC and MLO projections. 2-D mediolateral oblique (MLO) and craniocaudad (CC) views of both breasts were obtained. CAD: Full Field Digital Mammography with Computer Added Detection was performed. COMPARISON: Comparison is made with prior study dated 11/17/2014. FINDINGS: Breast Composition: The breasts are almost entirely fatty. There are no dominant masses or suspicious calcifications. Stable benign-appearing bilateral axillary lymph nodes. No other significant abnormalities are identified. There has been no significant change since the prior study. BI/SCREEN MAMM (CAD) W/KAYLEEN BILAT IMPRESSION: Stable bilateral screening mammogram. Yearly follow-up mammogram recommended. (A) ASSESSMENT CATEGORY: BIRADS Category 2: Benign. A letter regarding these results will be sent to the patient by the facility within 30 days. Approximately 10% of breast cancers are not detected by mammography. A normal mammogram should not delay biopsy of a clinically suspicious abnormality. [id number] Electronically Signed: Carlos Tafoya, at 13:35 EDT , Service support ,
== END ==
PROVIDERS: PCP Internal Medicine; Referring Provider Internal Medicine; Visit Provider Internal Medicine
DX: Z12.31 Encounter for screening mammogram for malignant neoplasm of breast (principal)
CPT/HCPCS: 77063; 77067

== ENCOUNTER → 2020-07-10 15:47 | Outpatient (CLI) | payer OTHER, SELFPAY ==
[2020-03-04 08:12] VITALS: BMI 40.1
--- NOTE | 2020-07-10 15:54 | CT_ITS ---
STUDY: CT SOFT TISSUE NECK WITH CONTRAST REASON FOR EXAM: Female, 50 years old. Right parotid mass x months. Hx diabetes, hypertension, tonsillectomy, thyroidectomy. RADIATION DOSAGE (If Supplied By Facility): CTDIvol = ( 20.05 ) mGy, DLP = ( 560.96 ) mGycm TECHNIQUE: The patient was scanned in a multi-detector CT scanner. High resolution transaxial imaging was performed following intravenous administration of IV 75mL [id number]-370. Sagittal and coronal images were reconstructed. Individualized dose optimization techniques were used for this CT. COMPARISON: None. FINDINGS: Normal bilateral parotid glands. Normal bilateral sas sql developer spaces. Normal bilateral parapharyngeal spaces. Normal bilateral carotid spaces. Normal bilateral sublingual and submandibular glands and spaces. Normal visualized nasopharynx. Normal retropharyngeal space. Normal perivertebral space. Normal visualized bilateral faucial tonsils. The visualized tongue, tongue base and oropharynx are normal. The visualized cervical lymph nodes (levels I-) are within normal size limits, and maintain normal morphology. There is no demonstrated solid or cystic mass lesion. There is no abnormal contrast enhancement. Normal epiglottis, bilateral vallecula and hypopharynx. The pre-epiglottic and paraglottic adipose spaces are normal. Normal visualized bilateral piriform sinuses, aryepiglottic folds, vocal cords, and arytenoid-cricoid articulations. Normal subglottic trachea. Normal bilateral lobes of the thyroid gland. Normal visualized pulmonary apices. Normal visualized paranasal sinuses. Normal visualized cervical spine. CT/Soft Tissue Neck WITH Contrast IMPRESSION: Normal enhanced CT examination of the soft tissues of the neck. Electronically Signed: Manuel Villegas MD at 9:16 EST Tel , Service support ,
== END ==
PROVIDERS: PCP Internal Medicine; Referring Provider Otolaryngology; Visit Provider Otolaryngology
DX: E21.5 Disorder of parathyroid gland, unspecified (principal)
CPT/HCPCS: 70491; Q9967; A4216

== ENCOUNTER 2021-09-02 14:30 | Outpatient (CLI) | payer OTHER, SELFPAY ==
[2021-09-02] MEDS: 0.9% Saline Lock 10 ML Syringe IV (14:38)
[2021-09-02 14:39] VITALS: BP 168/102; PULSE 73; RESP 16; TEMP 36.7; O2SAT 99; BMI 46.3
[2021-09-02 15:16] VITALS: BP 165/102; PULSE 70; RESP 16; TEMP 36.8; O2SAT 100
[2021-09-02 16:18] VITALS: BP 169/92; PULSE 84; RESP 16; TEMP 37.2; O2SAT 100
== END 2021-09-02 16:24 | disposition home or self-care (01) ==
LOC: MS3OUT 14:30 → MS3 14:32
PROVIDERS: PCP Internal Medicine; Referring Provider Nurse Practitioner Adult Health; Visit Provider Nurse Practitioner Adult Health
DX: Z23 Encounter for immunization (principal); U07.1 COVID-19; J45.909 Unspecified asthma, uncomplicated
CPT/HCPCS: J7050; M0245; Q0245; A4216

== ENCOUNTER 2021-09-13 15:09 | Outpatient (CLI) | payer OTHER, SELFPAY ==
--- NOTE | 2021-09-13 15:15 | RAD_ITS ---
STUDY: X-RAY CHEST REASON FOR EXAM: Female, 51 years old. COUGH TECHNIQUE: PA and lateral views of the chest. COMPARISON: Comparison is made with prior study dated 10/10/2017. FINDINGS: The lungs are clear and expanded. There is no demonstrated pleural abnormality. Normal size heart. Normal mediastinum and marcelo. Normal visualized pulmonary arteries. Normal visualized aortic arch and descending thoracic aorta. There are diffuse degenerative changes of the visualized thoracic spine. Normal visualized ribs, clavicles, and shoulders. There is no demonstrated abnormality of the visualized soft tissue structures of the upper abdomen. RAD/Chest PA and Lateral IMPRESSION: The lungs are clear. Electronically Signed: Carlos Tafoya MD at 15:27 EST , Service support ,
== END 2021-09-13 23:59 | disposition short-term general hospital (02) ==
LOC: MTRAD 15:11
PROVIDERS: PCP Internal Medicine; Referring Provider Nurse Practitioner; Visit Provider Nurse Practitioner
DX: R05.9 Cough, unspecified (principal)
CPT/HCPCS: 71046

== ENCOUNTER 2021-12-02 14:59 | Outpatient (CLI) | payer OTHER, SELFPAY ==
[2021-12-02 15:12] LABS: Absolute Lymphocyte Count 4.11 X10^3/uL (0.83-4.51); Absolute Neutrophil Count 7.2 X10^3/uL (2.0-7.7); Basophil# 0.07 X10^3/uL; Basophil% 0.5 % (0-1); Eosinophil# 0.67 X10^3/uL; Eosinophils% 5.2 % (0-5); Hematocrit 42.9 % (37-47); Hemoglobin 13.7 g/dL (12.0-15.0); Lymphocyte # 4.11 X10^3/ul (0.83-4.51); Lymphocyte % 32.1 % (19-41); Mean Corp Hgb Conc 31.9 g/dL (32-36); Mean Corpuscular Hgb 27.1 pg (27.0-32.0); Mean Corpuscular Volume 84.8 fL (81-99); Mean Platelet Vol. 10.3 fl (6.2-12.0); Monocyte# 0.65 X10^3/uL; Monocyte% 5.1 % (0-10); NRBC Flagged by Analyzer 0 % (0-5); Neutrophil # 7.15 X10^3/uL (2.7-7.7); Platelet Count 447 K/mm3 (150-450); RBC Distribution Width CV 14.2 % (11.6-14.6); RBC Distribution Width SD 43.6 fl (35.1-43.9); Red Blood Count 5.06 M/mm3 (4.2-5.4); White Blood Count 12.8 K/mm3 (4.4-11.0)
[2021-12-02 15:30] LABS: D-Dimer Quantitative (DVT/PE) 0.32 FEU/ug/m (0.27-0.49)
[2021-12-02 15:50] LABS: ALB/GLOB Ratio 1.1 RATIO (0.9-2.4); AST(SGOT) 30 U/L (15-37); Alanine Aminotransfer ALT/SGPT 36 U/L (13-56); Albumin, Serum 3.8 g/dL (3.2-5.0); Alkaline Phosphatase 105 U/L (45-117); Anion Gap 8 (5-15); BUN 13 mg/dL (7-18); BUN/Creat Ratio 16.9 RATIO (10-20); Calcium,Total 9.7 mg/dL (8.5-10.1); Chloride 101 mmol/L (98-107); Creatinine, Serum 0.77 mg/dL (0.55-1.02); EST Glomerular Filtration Rate 83 mL/min (>60); Est Glom Filt Rate - Afr Amer 101 mL/min (>60); Globulin 3.6 g/dL (2.2-4.2); Glucose 149 mg/dL (74-106); Potassium 4.7 mmol/L (3.5-5.1); Protein, Total 7.4 g/dL (6.4-8.2); Sodium Level 136 mmol/L (136-145); Thyroid Stim Hormone (TSH) 0.15 uIU/mL (0.358-3.74)
== END 2021-12-02 23:59 | disposition home or self-care (01) ==
LOC: LABSPEC 15:00
PROVIDERS: PCP Internal Medicine; Referring Provider Internal Medicine; Visit Provider Internal Medicine
DX: R41.89 Other symptoms and signs involving cognitive functions and awareness (principal); R06.02 Shortness of breath
CPT/HCPCS: 80053; 84443; 85025; 85379

== ENCOUNTER → 2021-12-31 | Outpatient (CLI) | payer OTHER, SELFPAY ==
--- NOTE | 2021-12-31 10:55 | ECHOD_ITS ---
Reason For Study: SOB Procedure This was a 2D Doppler, Color Flow transthoracic echocardiogram. The study was technically difficult. Exam performed in department. Left Ventricle Normal LV size. Left ventricular systolic function is normal. The estimated ejection fraction is 70 %. Transmitral doppler flow suggestive of impaired relaxation of left ventricle. No regional wall motion abnormalities noted. Right Ventricle Normal RV size. Normal systolic function. Atria Normal left atrium. Normal right atrium. No doppler evidence for ASD. Mitral Valve There is no mitral annular calcification. Normal mitral valve. Trivial mitral valve insufficiency. Tricuspid Valve Normal tricuspid valve. Trivial tricuspid valve insufficiency. Unable to estimate RV systolic pressure/pulmonary artery pressure due to technically difficult study. Aortic Valve Trisinus/trileaflet aortic valve. Mild focal aortic valve thickening. Pulmonic Valve The pulmonic valve is not well visualized. Great Vessels Normal sized aortic root. Pericardium/Pleural No pericardial effusion. MMode/2D Measurements & Calculations LVIDd: 3.9 cm IVSd: 1.3 cm Ao root diam: 3.4 cm LVIDs: 2.3 cm LVPWd: 1.2 cm RVDd: 2.8 cm FS: 41.5 % LAV(MOD-sp4): 49.5 ml LVAd ap4: 32.9 cm2 SV(MOD-sp4): 71.9 ml LVLd ap4: 8.2 cm EDV(MOD-sp4): 107.6 ml EDV(sp4-el): 111.8 ml LVAs ap4: 16.2 cm2 LVLs ap4: 6.4 cm ESV(MOD-sp4): 35.7 ml ESV(sp4-el): 35.0 ml EF(MOD-sp4): 66.8 % EF(sp4-el): 68.7 % SV(sp4-el): 76.7 ml LA A4 area: 17.4 cm2 LA dimension(2D): 3.0 cm RA A4 area: 7.9 cm2 Doppler Measurements & Calculations MV E max blayne: 69.3 cm/sec Lat Peak E' Blayne: 10.7 cm/sec Med Peak E' Blayne: 10.3 cm/sec MV A max blayne: 71.3 cm/sec E/E' lat: 6.5 E/E' med: 6.7 MV E/A: 0.97 PA V2 max: 126.0 cm/sec ECHO/Echo Complete Interpretation Summary The study was technically difficult. Left ventricular systolic function is normal. The estimated ejection fraction is 70 %. Trivial mitral valve insufficiency. Trivial tricuspid valve insufficiency. Mild focal aortic valve thickening. Unable to estimate RV systolic pressure/pulmonary artery pressure due to techni ralph difficult study. Transmitral doppler flow suggestive of impaired relaxation of left ventricle Ordering Physician: Ayanna Wright Referring Physician: Ayanna Wright Performed By: Charlotte Clarke RCS
== END | disposition home or self-care (01) ==
LOC: CVS 10:53
PROVIDERS: PCP Internal Medicine; Referring Provider Internal Medicine; Visit Provider Internal Medicine
DX: R06.02 Shortness of breath (principal); R00.2 Palpitations
CPT/HCPCS: 93225; 93226; 93306

== ENCOUNTER → 2022-11-17 | Outpatient (CLI) | payer OTHER, SELFPAY ==
--- NOTE | 2022-11-17 08:05 | US_ITS ---
STUDY: ABDOMINAL ULTRASOUND - RIGHT UPPER QUADRANT REASON FOR VISIT: Female, 52 years old FATTY LIVER . Prior cholecystectomy. TECHNIQUE: Ultrasound evaluation of the right upper quadrant was performed with real-time and static abad-scale imaging. TECHNICAL QUALITY: Adequate. COMPARISON: None. FINDINGS: Liver: The liver is enlarged and measures 23.9 cm. There is increased echogenicity consistent with fatty infiltration. The bile ducts are within normal limits. There is hepatic color flow. The direction of portal flow is hepatopetal. There is no demonstrated mass lesion. Gallbladder: The patient is status post cholecystectomy. Common Bile Duct (C.B.D.): The common bile duct is dilated and measures 13 mm. Pancreas: Normal size of the head, body and tail of the pancreas. There is normal echogenicity of the pancreas. There is no demonstrated pancreatic mass or cyst. Right Kidney: Normal size of the right kidney. The right kidney measures 11 cm x 5.1 cm x 5.2 cm. Normal renal cortex. The right cortex measures 1.7 cm. There is no demonstrated renal mass or cyst. There is no right hydronephrosis. US/Abdomen Limited IMPRESSION: Hepatomegaly and diffuse fatty infiltration of the liver. Electronically Signed: Carlos Tafoya MD at 12:04 EDT ,
--- NOTE | 2022-11-17 08:05 | US_ITS ---
STUDY: ABDOMINAL ULTRASOUND - ELASTOGRAPHY REASON FOR VISIT: Female, 52 years old. Hepatomegaly and fatty infiltration of the liver. TECHNIQUE: Liver stiffness measurements were obtained on a [employer] RS 85 ultrasound machine using a CA 1-7 probe following the SRU guidelines. 3 measurements were obtained using a 2-D-SWE method. TheIQR/M was 14% suggesting a quality data set. TECHNICAL QUALITY: Adequate. COMPARISON: Comparison is made with prior study done earlier in the day. FINDINGS: Liver: Hepatomegaly and fatty infiltration of the liver. Median liver stiffness measured 6.9 kPa. US/Elastography Parenchyma/Organ IMPRESSION: Liver stiffness measures 6.9 kPa compatible with F2-F3 (Mild to moderate liver fibrosis) Metavir score. Electronically Signed: Carlos Tafoya MD at 12:06 EDT ,
--- NOTE | 2022-11-17 09:02 | BI_ITS ---
MAMMOGRAPHY - BILATERAL SCREENING 3-D TOMOSYNTHESIS REASON FOR EXAM: Female, 52 years old. SCREENING PERTINENT HISTORY: 05/18/2020. TECHNIQUE: 2-D mammograms and 3-D Tomosynthesis of the breast (s) were performed. CAD was performed. COMPARISON: None. FINDINGS: The breast composition is almost entirely fat. Scattered benign calcifications are seen. No dense spiculated masses or suspicious microcalcifications are identified. No architectural distortion is identified. There is no skin thickening or retraction. There has been no significant change since the prior study. BI/SCRN MAMM (CAD)W/KAYLEEN BILAT IMPRESSION: No mammographic signs of malignancy. Routine yearly mammograms recommended. ASSESSMENT CATEGORY: BIRADS Category 1: Negative. A letter regarding these results will be sent to the patient by the facility within 30 days. FOLLOW UP RECOMMENDATION: Yearly follow up mammogram recommended. (A) Approximately 10% of breast cancers are not detected by mammography. A normal mammogram should not delay biopsy of a clinically suspicious abnormality. Electronically Signed: Henry Yuan MD at 10:28 EDT ,
== END | disposition home or self-care (01) ==
LOC: US 08:04
PROVIDERS: PCP Internal Medicine; Visit Provider Internal Medicine
DX: Z12.31 Encounter for screening mammogram for malignant neoplasm of breast (principal); K76.0 Fatty (change of) liver, not elsewhere classified
CPT/HCPCS: 76705; 76981; 77063; 77067

== ENCOUNTER → 2023-01-03 | Outpatient (CLI) | payer OTHER, SELFPAY ==
[2023-01-03 10:54] LABS: PTHIN 43.4 pg/mL (18.4-80.1)
[2023-01-03 10:58] LABS: Vitamin B12 407 pg/mL (211-911); Vitamin D,25 Hydroxy 26.1 ng/mL
[2023-01-03 11:20] LABS: Calcium,Total 10.2 mg/dL (8.5-10.1); T4 Free Direct 1.42 ng/dL (0.76-1.46); Thyroid Stim Hormone (TSH) 0.97 uIU/mL (0.358-3.74)
[2023-01-05 08:12] LABS: Anti-Thyroglobulin AB < 1.0 IU/mL (0.0-0.9); Thyroglobulin, Serum Qt. 0.1 ng/mL (1.5-38.5)
== END | disposition home or self-care (01) ==
PROVIDERS: PCP Internal Medicine; Referring Provider Internal Medicine Endocrinology, Diabetes & Metabolism; Visit Provider Internal Medicine Endocrinology, Diabetes & Metabolism
DX: E55.9 Vitamin D deficiency, unspecified (principal); C73 Malignant neoplasm of thyroid gland; E03.9 Hypothyroidism, unspecified
CPT/HCPCS: 36415; 82306; 82310; 82607; 83970; 84432; 84439; 84443; 86800

== ENCOUNTER → 2024-05-17 | Outpatient (CLI) | payer OTHER, SELFPAY ==
--- NOTE | 2024-05-17 14:42 | BI_ITS ---
MAMMOGRAPHY - BILATERAL SCREENING REASON FOR EXAM: Female, 54 years old. Routine annual screening examination. PERTINENT HISTORY: Mother with breast cancer. Aunt with breast cancer. TECHNIQUE: Digital bilateral breast kayleen (3D mammographic acquisition) in the CC and MLO projections. 2-D mediolateral oblique (MLO) and craniocaudad (CC) views of both breasts were obtained. CAD: Full Field Digital Mammography with Computer Added Detection was performed. COMPARISON: Comparison is made with prior study November 17, 2022 and May 18, 2020. FINDINGS: Breast Composition: The breasts are almost entirely fatty. There are no dominant masses or suspicious calcifications. No other significant abnormalities are identified. There has been no significant change since the prior study. BI/SCRN MAMM (CAD)W/KAYLEEN BILAT IMPRESSION: Stable bilateral screening mammogram. Yearly follow-up mammogram recommended. (A) ASSESSMENT CATEGORY: BIRADS Category 1: Negative. A letter regarding these results will be sent to the patient by the facility within 30 days. Approximately 10% of breast cancers are not detected by mammography. A normal mammogram should not delay biopsy of a clinically suspicious abnormality. [id number] Electronically Signed: Carlos Tafoya MD at 8:29 EDT ,
== END | disposition home or self-care (01) ==
LOC: OPBI 14:42
PROVIDERS: PCP Internal Medicine; Referring Provider Internal Medicine; Visit Provider Internal Medicine
DX: Z12.31 Encounter for screening mammogram for malignant neoplasm of breast (principal)
CPT/HCPCS: 77063; 77067

== ENCOUNTER → 2024-06-28 | Outpatient (CLI) | payer OTHER, SELFPAY ==
[2024-06-28 16:52] LABS: Thyroid Stim Hormone (TSH) 0.009 uIU/mL (0.358-3.740)
[2024-07-01 18:07] LABS: Anti-Thyroglobulin AB < 1.0 IU/mL (0.0-0.9); Thyroglobulin, Serum Qt. 0.1 ng/mL (1.5-38.5)
== END | disposition home or self-care (01) ==
LOC: LAB 15:10
PROVIDERS: PCP Internal Medicine; Referring Provider Internal Medicine Endocrinology, Diabetes & Metabolism; Visit Provider Internal Medicine Endocrinology, Diabetes & Metabolism
DX: E89.0 Postprocedural hypothyroidism (principal); C73 Malignant neoplasm of thyroid gland
CPT/HCPCS: 36415; 84432; 84439; 84443; 86800

== ENCOUNTER 2025-05-06 18:45 | Emergency (ER) | payer OTHER, SELFPAY ==
[2025-05-06 18:46] VITALS: BP 172/85; PULSE 89; RESP 19; TEMP 37.1; O2SAT 98; BMI 41.1
--- NOTE | 2025-05-06 19:43 | EKG12_ITS ---
Test Reason : CP Blood Pressure : */* mmHG Vent. Rate : 82 BPM Atrial Rate : 82 BPM P-R Int : 138 ms QRS Dur : 78 ms QT Int : 358 ms P-R-T Axes : 37 28 31 degrees QTcB Int : 418 ms Normal sinus rhythm with sinus arrhythmia Normal ECG Confirmed by Rashard Hoover ([id number]), editor in chief HARI DUMONT ([id number]) on 05/07/2025 10:30:52 AM Referred By: BB Confirmed By: Rashard Hoover
--- NOTE | 2025-05-06 19:43 | ED.VIS.CHEST ---
HPI History of Present Illness Chief Complaint: Chest Pain Informant: patient Narrative Narrative: About an hour or so prior to arrival, patient had an episode of squeezing chest discomfort that made her also feel like she was a little dyspneic and lightheaded, lasted about 15 minutes before spontaneously abating. States that started while she was eating, and as a result, she felt like she could not swallow although she was trying. Subsequently, she was able to swallow. Now she is asymptomatic. She has never had this happen before. Strong family history of heart disease in first-degree family members at young ages; ages 30, 40s, and 55 and a grandfather. Patient is anticoagulated chronically because of history of pulmonary embolus, but prior to this episode of discomfort she was having no symptoms. CVD Risk Factors: Positive for Diabetes, Hypercholesterolemia, Family History 1' </=55 and Smoking (Former); Negative for Hypertension [facility] Medical History B12 deficiency Thyroid cancer Vitamin D deficiency Hypercalcemia Kidney stone Pulmonary embolism Fatty liver Mixed hyperlipidemia Tachycardia Hypothyroidism COVID-19 Pain in right shoulder Right shoulder strain Hx of renal calculi Back pain Neck pain Limb weakness Hx of blood clots Thyroid disease Asthma Diarrhea Chest pain Migraines Diabetes Shoulder pain Hemorrhoids SOB (shortness of breath) Cancer Arthritis Home Medications ?Medication ?Instructions ?Recorded ?Last Taken ?Type allopurinol 300 mg tablet 300 mg PO QDAY 01/24/18 Unknown History albuterol sulfate 2.5 mg/3 mL 2.5 mg inhalation Q6H PRN 06/14/22 Unknown History (0.083 %) solution for nebulization shortness of breath or wheezing apixaban 5 mg tablet (Eliquis) 5 mg PO BID 06/23/22 Unknown History doxycycline hyclate 20 mg tablet 20 mg PO BID 01/03/23 Unknown History levothyroxine 200 mcg tablet 200 mcg PO .COMPLEX 06/28/24 Unknown History (Euthyrox) tirzepatide 15 mg/0.5 mL 15 mg (0.5 mL) subcut QWEEK #2 mL 04/17/25 Unknown Rx subcutaneous pen injector (Mounjaro) Allergy/AdvReac Type Severity Reaction Status Date / Time egg (egg whites) Allergy Unknown PT UNSURE Verified 05/06/25 18:51 OF REACTION milk Allergy Unknown unknown Verified 05/06/25 18:51 latex Allergy Hives Verified 05/06/25 18:51 Penicillins Allergy Hives Verified 05/06/25 18:51 cyclobenzaprine (From AdvReac Intermediate Nausea Verified 05/06/25 18:51 Flexeril) Sulfa (Sulfonamide AdvReac Unknown Diarrhea Verified 05/06/25 18:51 Antibiotics) and Vomiting erythromycin base AdvReac Nausea/Vom/ Verified 05/06/25 18:51 Diarrhea tetracycline AdvReac Nausea/Vom/ Verified 05/06/25 18:51 Diarrhea Family History Brother Heart disease Hypertension Grandfather Heart disease Mother Hypertension Father Hypertension Cancer Lung Other Alzheimer disease Breast cancer Lung cancer Surgical History History of biopsy Hx of thyroidectomy Hx of cholecystectomy Hx of hysterectomy Hx of laparoscopy Hx of tonsillectomy Social History adopted: No household members: family housing: house number of children: 1 current occupational status: employed current occupation: healthcare account manager current occupational exposures/hazards: No pets and animals: Yes pets and animals: cat(s) leisure activities: reading history of recent travel: No sexually active: No Smoking Status: Former smoker alcohol intake: never substance use type: does not use well-balanced diet: daily or most days caffeine: Yes eating out: 1-3 times/week during the past year weight has: increased > 10 lbs what type of physical activity do you participate in: walking seatbelt use: always do you feel safe at home: Yes ROS ROS ED Constitutional Constitutional ED: Denies chills or fever(s) Eyes Eyes: Denies change in vision or diplopia ENT ENT ED: Denies rhinorrhea or sore throat Cardiovascular Cardiovascular: Reports as per HPI and chest pain; Denies palpitations Respiratory/Chest Respiratory/Chest: Reports dyspnea and other Details: No longer dyspneic. ; Denies cough Gastrointestinal Gastrointestinal: Denies abdominal pain, diarrhea, nausea or vomiting Genitourinary Genitourinary ED: Denies dysuria or hematuria Musculoskeletal Musculoskeletal: Denies back pain or neck pain Integumentary Denies abscess or rash Neurologic Neurologic: Denies headache(s), paresthesias or weakness Psychiatric Psychiatric: Denies anxiety or suicidal thoughts EXAM Physical Exam Const Vital Signs: 05/06/25 18:46 05/06/25 18:52 05/06/25 19:44 Temperature 98.8 F Temperature Source Oral Pulse Rate 89 Respiratory Rate 19 H Respiratory Effort Normal Blood Pressure 172/85 H Blood Pressure Mean 114 Pulse Ox 98 Oxygen Delivery Method Room Air 05/06/25 19:46 05/06/25 20:00 05/06/25 21:00 Temperature Temperature Source Pulse Rate 81 84 78 Respiratory Rate 17 12 14 Respiratory Effort Blood Pressure 125/73 H 110/72 116/69 Blood Pressure Mean 90 84 84 Pulse Ox 100 100 80 Oxygen Delivery Method Room Air Room Air Room Air 05/06/25 22:00 Temperature Temperature Source Pulse Rate 81 Respiratory Rate 18 Respiratory Effort Blood Pressure 126/74 H Blood Pressure Mean 91 Pulse Ox 100 Oxygen Delivery Method Room Air Positive well nourished, well developed and obese General Appearance ED: well developed and NAD Nutritional Appearance: obese HEENT Reports moist mucous membranes normocephalic and atraumatic Eyes PERRL and EOMs intact bilaterally Neck full ROM and supple Resp normal respiratory effort and clear to auscultation bilaterally Cardio regular rate, regular rhythm and no murmurs Rate: Negative for tachycardic Peripheral Pulses: pulses 2+ throughout GI non-tender and non-distended Auscultation: normoactive bowel sounds Palpation: soft Back/Spine no CVA tenderness General Back: other FROM Extremity normal to inspection General Extremety ED: Negative for edema, pulses abnormal or tenderness General Extremity: Negative for edema or pulses abnormal Neuro oriented x3, CN's II-XII intact bilaterally and no sensory deficits noted Sensorium / Orientation: awake and alert Motor Exam: strength 5/5 throughout Skin no rashes or lesions noted and no wounds Heart Score History: Slightly/Non-Suspicious (More suspicious for esophageal spasm) ECG: Normal Age: >45 - <65 years Risk Factors: >/= 3 Risk Factors or History of CAD Troponin: </= Normal Limit Score: 3 MDM MDM MDM Narrative Medical decision making narrative: Patient has a normal EKG. Given the fact that the patient was having trouble swallowing at the time she was having the symptoms, and only lasted 15 minutes and occurred at rest, my suspicion is that this was esophageal spasm. We monitored her in the ER, her repeat blood pressure 116/69, the rest of her vital signs are normal. Chest x-ray 2 views on my interpretation is normal. Initial troponin is 7, well within normal limits. She had another very brief but less significant episode here in the emergency department, her heart rate went down to the 50s at the time, no other significant events in telemetry or clinically. We did a delta troponin, the second measurement is 9, which is clinically insignificant change, still well within normal limits. Stable for discharge home and close outpatient follow up. Lab Data Attestation: I reviewed the patient's lab results. Labs: Laboratory Results - last 24 hr 05/06/25 05/06/25 19:40 21:45 WBC 15.4 H RBC 5.40 Hgb 15.0 Hct 45.5 MCV 84.3 MCH 27.8 MCHC 33.0 RDW Std Deviation 41.7 RDW Coeff of Xavier 13.6 Plt Count 471 H MPV 10.9 Immature Gran % (Auto) 0.800 Neut % (Auto) 45.5 L Lymph % (Auto) 39.4 [place] % (Auto) 5.5 Eos % (Auto) 8.2 H Baso % (Auto) 0.6 Absolute Neuts (auto) 7.0 Absolute Lymphs (auto) 6.07 H Nucleated RBC % 0 Differential Comment SCANNED Platelet Estimate SLT INC Sodium 139 Potassium 4.1 Chloride 101 Carbon Dioxide 23.4 Anion Gap 15 BUN 11 Creatinine 0.82 Estim Creat Clear Calc 102.36 Est GFR (MDRD) Non-Af 84 BUN/Creatinine Ratio 12.8 Glucose 139 H Calcium 9.9 Troponin T High Sens 7 Troponin T Hi Sens 2 Hr 9 Radiography Diagnostic Testing: Clinical Impression(s) from Imaging Studies Chest X-Ray 05/06/25 19:45 IMPRESSION: No acute cardiopulmonary disease. Reading Location: [facility] Rhythm Strip Rhythm Strip: Sinus Rhythm Rate: 80 Ectopy: None EKG Initial EKG: Attestation: I personally reviewed and interpreted this EKG as follows: Interpretation: Sinus Rhythm and No Acute Injury Pattern Comments: Nml axis & intervals; nml EKG Discharge Plan Triage Chief Complaint: Chest Pain ED Provider: Woody Little Dx/Rx/DC Orders Clinical Impression: Intermittent chest pain, Anticoagulated on apixaban Instructions: ED Chest Pain, Uncertain Cause, ED Esophageal Spasm Prescriptions: No Action allopurinol 300 mg tablet 300 mg PO QDAY Eliquis 5 mg tablet 5 mg PO BID albuterol sulfate 2.5 mg /3 mL (0.083 %) solution for nebulization 2.5 mg inhalation Q6H PRN (Reason: shortness of breath or wheezing) doxycycline hyclate 20 mg tablet 20 mg PO BID levothyroxine [Euthyrox] 200 mcg tablet 200 mcg PO .COMPLEX Rx Instructions: daily Mounjaro 15 mg/0.5 mL pen injector 15 mg subcut QWEEK Qty: 2 2RF Primary Care Provider: Ayanna Wright Referrals: Ayanna Wright DO [Primary Care Provider] - As soon as possible Print Language: Mohawk Disposition Disposition: Home, Self Care
--- NOTE | 2025-05-06 19:45 | RAD_ITS ---
PROCEDURE: CHEST PA AND LATERAL 05/06/2025 REASON FOR EXAM: CHEST PAIN TECHNIQUE: Procedure Code: RADCXR Modality: DX Procedure: CHEST PA AND LATERAL COMPARISON: 09/13/2021 FINDINGS: Lungs/Pleura: Clear. No pneumothorax or pleural effusion. Heart/Mediastinum: Normal in size and contour. Bones/Soft tissues: Mild degenerative changes of the spine. RAD/Chest PA and Lateral IMPRESSION: No acute cardiopulmonary disease. Reading Location: [id number]
[2025-05-06 19:46] VITALS: BP 125/73; PULSE 81; RESP 17; O2SAT 100
[2025-05-06 20:00] VITALS: BP 110/72; PULSE 84; RESP 12; O2SAT 100
[2025-05-06 20:21] LABS: Anion Gap 15 (5-15); BUN 11 mg/dL (4-19); BUN/Creat Ratio 12.8 RATIO (10-20); Calcium,Total 9.9 mg/dL (7.6-11.0); Carbon Dioxide 23.4 mmol/L (21.0-32.0); Chloride 101 mmol/L (98-108); Estimated Creatinine Clearance 102.36 ml/min (50-250); Glucose 139 mg/dL (70-99); Potassium 4.1 mmol/L (3.3-5.1); Troponin T High Sensitivity 7 ng/L (<=14)
[2025-05-06 20:23] LABS: Hematocrit 45.5 % (37-47); Hemoglobin 15.0 g/dL (12.0-15.0); Immature Granulocytes Count 0.120 X10^3/uL (0.0-0.0); Mean Corp Hgb Conc 33.0 g/dL (32-36); Mean Corpuscular Volume 84.3 fL (81-99); Mean Platelet Vol. 10.9 fl (6.2-12.0); NRBC Flagged by Analyzer 0 % (0-5); POSITIVE DIFFERENTIAL YES; Platelet Count 471 K/mm3 (150-450); RBC Distribution Width CV 13.6 % (11.6-14.6); RBC Distribution Width SD 41.7 fl (35.1-43.9); Red Blood Count 5.40 M/mm3 (4.2-5.4); White Blood Count 15.4 K/mm3 (4.4-11.0)
[2025-05-06 20:29] LABS: Differential Indicated SCAN CRITERIA MET
[2025-05-06 21:00] VITALS: BP 116/69; PULSE 78; RESP 14; O2SAT 80
[2025-05-06 21:44] LABS: Differential Comment SCANNED
[2025-05-06 22:00] VITALS: BP 126/74; PULSE 81; RESP 18; O2SAT 100
[2025-05-06 22:31] LABS: Troponin T High Sens 2 HR 9 ng/L (<=14)
[2025-05-06 22:41] VITALS: BP 129/80; PULSE 78; RESP 16; TEMP 37; O2SAT 99
== END 2025-05-06 22:52 | disposition home or self-care (01) ==
PROVIDERS: Emergency Provider Emergency Medicine; PCP Internal Medicine; Visit Provider Emergency Medicine
DX: R07.89 Other chest pain (principal); E11.9 Type 2 diabetes mellitus without complications; R06.00 Dyspnea, unspecified; R42 Dizziness and giddiness; E66.9 Obesity, unspecified; E03.9 Hypothyroidism, unspecified; J45.909 Unspecified asthma, uncomplicated; Z90.49 Acquired absence of other specified parts of digestive tract; Z79.85 Long-term (current) use of injectable non-insulin antidiabetic drugs; Z82.49 Family history of ischemic heart disease and other diseases of the circulatory system; Z79.01 Long term (current) use of anticoagulants; Z86.718 Personal history of other venous thrombosis and embolism; Z79.899 Other long term (current) drug therapy; Z79.890 Hormone replacement therapy; Z87.891 Personal history of nicotine dependence
CPT/HCPCS: 71046; 80048; 84484; 85025; 93005; 99283; A4216

== ENCOUNTER → 2025-07-18 | Outpatient (CLI) | payer OTHER, SELFPAY ==
[2025-07-18 17:22] LABS: AST(SGOT) 22 U/L (<=31); Alanine Aminotransfer ALT/SGPT 16 U/L (<=34); Albumin, Serum 4.4 g/dL (3.5-5.0); Alkaline Phosphatase 102 U/L (35-104); Anion Gap 11 (5-15); BUN 11 mg/dL (4-19); BUN/Creat Ratio 14.3 RATIO (10-20); Calcium,Total 10.4 mg/dL (7.6-11.0); Carbon Dioxide 24.4 mmol/L (21.0-32.0); Chloride 104 mmol/L (98-108); Globulin 3.3 g/dL (2.2-4.2); Glucose 136 mg/dL (70-99); Potassium 4.4 mmol/L (3.3-5.1)
== END | disposition home or self-care (01) ==
LOC: LAB 15:38
PROVIDERS: PCP Internal Medicine; Referring Provider Internal Medicine Endocrinology, Diabetes & Metabolism; Visit Provider Internal Medicine Endocrinology, Diabetes & Metabolism
DX: E11.9 Type 2 diabetes mellitus without complications (principal); C73 Malignant neoplasm of thyroid gland; E89.0 Postprocedural hypothyroidism
CPT/HCPCS: 36415; 80053; 84439; 84443